=== PATIENT | female | born 1955 | race Caucasian/White ===

== ENCOUNTER 2021-11-23 08:39 | Outpatient (CLI) | payer OTHER, SELFPAY | END 2021-11-23 08:40 | disposition home or self-care (01) | LOC: INJ CL 08:40 | PROVIDERS: PCP Nurse Practitioner Family; Visit Provider Family Medicine | DX: M51.36 Other intervertebral disc degeneration, lumbar region (principal); M54.16 Radiculopathy, lumbar region | CPT/HCPCS: 62323; J0702; Q9966 ==